=== PATIENT | female | born 1930 | race Caucasian/White ===

== ENCOUNTER 2017-10-04 05:36 | Inpatient (IN) | payer OTHER ==
[~2017-10-04] VITALS: Ht 162.6 cm; Wt 80.1 kg
[~2017-10-04 05:36] MED LIST: ATENOLOL/CHLOR1 EAC1 PO; CLIMARA0.05 MG TP; CYANOCOBALAM1000 MCG PO; DAILY MULTIPLE1 EACH PO; FISH OIL WITH1 EACH PO; GABAPENTIN100 MG PO; GINKGO BILOBA120 M1 PO; LISINOPRIL20 MG PO; MECLIZINE HCL12.5 M1 PO; NAPROXEN SODIU220 M1 PO; OXYCODONE HCL10 MG PO; PRAVASTATIN SOD10 MG PO; PROMETHAZINE12.5 M1 PO; TENORETIC 501 TABLET PO; TIZANIDINE HCL2 M1 PO
[2017-10-04 05:57] LABS: HEMATOCRIT 43.8 % (36.0-46.0); HEMOGLOBIN 14.7 G/DL (11.9-15.5); MCH 29.8 PG (29.0-34.0); MCHC 33.6 G/DL (30.0-36.0); MCV 88.8 FL (83-99); PLATELET COUNT 209 K/uL (156-360); RBC DIS.WIDTH-CV 12.5 % (11.8-14.6); RBC DIS.WIDTH-SD 41.1 % (39-53); RED BLOOD COUNT 4.93 M/uL (3.80-5.20); WHITE BLOOD COUNT 10.2 K/uL (4.1-10.2)
[2017-10-04 06:09] LABS: ALBUMIN 3.9 g/dL (3.2-4.8); CHLORIDE 104 mEq/L (99-109); POTASSIUM 3.7 mEq/L (3.7-5.4); SODIUM 140 mEq/L (136-147)
[2017-10-04 06:11] LABS: GLUCOSE 150 mg/dL (70-99); TOTAL PROTEIN 7.7 g/dL (6.4-8.3)
[2017-10-04 06:13] LABS: TOTAL BILIRUBIN 0.6 mg/dL (0.0-1.0)
[2017-10-04 06:15] LABS: ALKALINE PHOSPHATASE 71 IU/L (3-129); CREATININE 0.8 mg/dL (0.6-1.3); GFR ESTIMATE (CALCULATED) > 59 mL/min/
[2017-10-04 06:16] LABS: AST (GOT) 15 IU/L (2-34); UREA NITROGEN (BUN) 8 mg/dL (9-23)
[2017-10-04 06:18] LABS: ALT (GPT) 8 IU/L (3-49); LIPASE 8 U/L (1.0-51.0); TROP-I INTERPRETATION NEGATIVE; TROPONIN-I 0.01 ng/mL (0.0-0.30)
[2017-10-04 07:23] LABS: APPEARANCE CLOUDY ((CLEAR)); BILIRUBIN NEGATIVE; BLOOD NEGATIVE; COLOR YELLOW ((YELLOW)); GLUCOSE (STRIP) NEGATIVE; KETONES 20; LEUKOCYTES NEGATIVE; NITRITE NEGATIVE; PROTEIN (STRIP) 30; SPECIFIC GRAVITY 1.012 (1.000-1.030); UROBILINOGEN 0.2 MG/DL (0.2-1.0)
[2017-10-04 07:39] LABS: AMORPHOUS PHOSPHATE CRYSTALS 1+; BACTERIA 1+ /HPF; EPITHELIAL CELLS RARE /HPF; MUCUS NONE SEEN /LPF; RED BLOOD CELLS RARE /HPF (0-5); UCUL ADDED? NO; WHITE BLOOD CELLS RARE /HPF (0-5)
[2017-10-04 09:30] LABS: HDL CHOLESTEROL 53 MG/DL (Desirable>=50); LDL CHOLESTEROL 112 mg/dL (Desirable<100); NON-HDL CHOLESTEROL 126 mg/dL (Desirable<160); TOTAL CHOLESTEROL 179 mg/dL (Desirable<200); TRIGLYCERIDES 68 MG/DL (Normal: <150)
[2017-10-04] MEDS ORDERED: ASPIR 8181 M1 PO (10:27)
[2017-10-04 10:33] LABS: HEMOGLOBIN A1c (GLYCOHEMOGLOB) 5.5 % (Below 5.7)
[2017-10-04] MEDS ORDERED: RIVASTIGMINE1 EAC1 TD (10:36)
[2017-10-04] MEDS ORDERED: ATENOLOL50 MG PO (10:37)
[2017-10-04 12:16] LABS: TROP-I INTERPRETATION NEGATIVE; TROPONIN-I 0.01 ng/mL (0.0-0.30)
[2017-10-04 13:38] VITALS: BP 144/84
[2017-10-04 15:42] VITALS: BP 160/72
[2017-10-04 18:27] LABS: TROP-I INTERPRETATION NEGATIVE; TROPONIN-I 0.03 ng/mL (0.0-0.30)
[2017-10-04 20:08] VITALS: BP 132/60
[2017-10-05 04:02] VITALS: BP 145/77
[2017-10-05 07:03] VITALS: BP 165/77
[2017-10-05 11:02] VITALS: BP 166/84
[2017-10-05 15:11] VITALS: BP 147/71
[2017-10-05 20:00] VITALS: BP 163/78
[2017-10-06] VITALS (7 sets, daily range): BP systolic 125–169; BP diastolic 63–95
[2017-10-06 06:58] LABS: BASOPHIL (%) 0.5 % (0-1); EOSINOPHIL (%) 0.6 % (0-5); HEMATOCRIT 41.7 % (36.0-46.0); HEMOGLOBIN 13.9 G/DL (11.9-15.5); IMMATURE GRANULOCYTE (%) 0.2 % (0.0-0.7); LYMPHOCYTE (%) 19.7 % (15-42); LYMPHOCYTE COUNT 1.2 K/uL (1.0-2.8); MCH 29.6 PG (29.0-34.0); MCHC 33.3 G/DL (30.0-36.0); MCV 88.7 FL (83-99); MONOCYTE (%) 7.6 % (3-12); MONOCYTE COUNT 0.5 K/uL (0-0.8); NEUTROPHIL (%) 71.4 % (45-76); NEUTROPHIL COUNT 4.4 K/uL (1.8-6.4); PLATELET COUNT 199 K/uL (156-360); RBC DIS.WIDTH-CV 12.5 % (11.8-14.6); RBC DIS.WIDTH-SD 40.6 % (39-53); WHITE BLOOD COUNT 6.2 K/uL (4.1-10.2)
[2017-10-06 07:29] LABS: CHLORIDE 106 MEQ/L (99-109); CREATININE 0.7 MG/DL (0.6-1.3); GFR ESTIMATE (CALCULATED) > 59 mL/min/; MAGNESIUM 1.9 mg/dl (1.3-2.7); POTASSIUM 3.5 MEQ/L (3.7-5.4); SODIUM 140 MEQ/L (136-147); UREA NITROGEN (BUN) 8 mg/dL (9-23)
[2017-10-06 07:32] LABS: GLUCOSE 107 mg/dL (70-99)
[2017-10-07 03:45] VITALS: BP 146/82
[2017-10-07] MEDS ORDERED: CLOPIDOGREL75 MG PO (08:08)
[2017-10-07] MEDS ORDERED: ATORVASTATIN CA40 MG PO (08:09)
[2017-10-07 08:38] VITALS: BP 135/72
== END 2017-10-07 11:26 | DRG 66 ==
LOC: EME → EDBD 05:36 → EME 05:36 → EDOF 08:22 → 5SOUTH 08:22 → ENRESERV 08:23 → 5SOUTH 13:23 → ENPENDDIS 10-07 08:42 → 5SOUTH 10-07 11:26
PROVIDERS: Emergency Medicine; Internal Medicine; Physician Assistant
DX: I63.511 Cerebral infarction due to unspecified occlusion or stenosis of right middle cerebral artery (principal); R29.702 NIHSS score 2; I10 Essential (primary) hypertension; E78.5 Hyperlipidemia, unspecified; F03.90 Unspecified dementia, unspecified severity, without behavioral disturbance, psychotic disturbance, mood disturbance, and anxiety; E07.9 Disorder of thyroid, unspecified; M48.00 Spinal stenosis, site unspecified; Z79.82 Long term (current) use of aspirin
CPT/HCPCS: 70450; 70496; 70498; 70551; 71045; 80048; 80053; 80061; 81003; 83036; 83690; 83735; 84443; 84484; 85025; 85027; 93005; 93306; 99281; 99285; J1650; J2405; J7030

== ENCOUNTER 2017-10-21 15:01 | Emergency (ER) | payer OTHER ==
[~2017-10-21] VITALS: Ht 162.6 cm; Wt 79.8 kg
[~2017-10-21 15:01] MED LIST changes: +ASPIR 8181 M1 PO; +ATENOLOL50 MG PO; +ATORVASTATIN CA40 MG PO; +CLOPIDOGREL75 MG PO; +RIVASTIGMINE1 EAC1 TD
[2017-10-21 16:19] LABS: BASOPHIL (%) 0.5 % (0-1); EOSINOPHIL (%) 1.8 % (0-5); EOSINOPHIL COUNT 0.1 K/uL (0-0.3); HEMATOCRIT 40.8 % (36.0-46.0); HEMOGLOBIN 13.7 G/DL (11.9-15.5); IMMATURE GRANULOCYTE (%) 0.4 % (0.0-0.7); LYMPHOCYTE (%) 17.3 % (15-42); LYMPHOCYTE COUNT 1.4 K/uL (1.0-2.8); MCH 29.9 PG (29.0-34.0); MCHC 33.6 G/DL (30.0-36.0); MCV 89.1 FL (83-99); MONOCYTE (%) 7.5 % (3-12); MONOCYTE COUNT 0.6 K/uL (0-0.8); NEUTROPHIL (%) 72.5 % (45-76); NEUTROPHIL COUNT 5.8 K/uL (1.8-6.4); PLATELET COUNT 230 K/uL (156-360); RBC DIS.WIDTH-CV 12.9 % (11.8-14.6); RBC DIS.WIDTH-SD 42.2 % (39-53); RED BLOOD COUNT 4.58 M/uL (3.80-5.20)
[2017-10-21 16:28] LABS: CHLORIDE 102 mEq/L (99-109); POTASSIUM 3.9 mEq/L (3.7-5.4); SODIUM 136 mEq/L (136-147)
[2017-10-21 16:30] LABS: GLUCOSE 95 mg/dL (70-99)
[2017-10-21 16:34] LABS: CREATININE 0.8 mg/dL (0.6-1.3); GFR ESTIMATE (CALCULATED) > 59 mL/min/; UREA NITROGEN (BUN) 10 mg/dL (9-23)
[2017-10-21 16:41] LABS: TROP-I INTERPRETATION NEGATIVE; TROPONIN-I < 0.01 ng/mL (0.0-0.30)
[2017-10-21 17:05] LABS: APPEARANCE CLEAR ((CLEAR)); BILIRUBIN NEGATIVE; BLOOD NEGATIVE; COLOR YELLOW ((YELLOW)); GLUCOSE (STRIP) NEGATIVE; KETONES 5; LEUKOCYTES NEGATIVE; NITRITE NEGATIVE; PROTEIN (STRIP) NEGATIVE; SPECIFIC GRAVITY 1.009 (1.000-1.030); UCUL ADDED? NO; UROBILINOGEN 0.2 MG/DL (0.2-1.0)
[2017-10-21 19:26] VITALS: BP 155/83
== END 2017-10-21 19:27 | disposition home or self-care (01) ==
LOC: EME 15:01
PROVIDERS: Emergency Medicine
DX: M51.36 Other intervertebral disc degeneration, lumbar region (principal); M48.061 Spinal stenosis, lumbar region without neurogenic claudication; R53.1 Weakness; G89.29 Other chronic pain; Z86.73 Personal history of transient ischemic attack (TIA), and cerebral infarction without residual deficits
CPT/HCPCS: 71046; 72131; 80048; 81003; 84484; 85025; 93005; 99281; 99284